=== PATIENT | male | born 1980 | race Two or more races ===

== ENCOUNTER 2023-04-06 18:28 | Inpatient (IN) | payer OTHER ==
[~2023-04-06] VITALS: Ht 177.8 cm; Wt 68.9 kg
[2023-04-06 19:49] LABS: HEMATOCRIT 47.3 % (39.0-48.0); HEMOGLOBIN 15.8 g/dL (13-16.00); MEAN CELL VOLUME 90.9 fL (80.0-100.00); MEAN CORPUSCULAR HEMOGLOBIN 30.3 pg (27.00-32.0); MEAN CORPUSCULAR HGB CONC 33.3 g/dl (32.0-36.0); PLATELET COUNT 202 K/uL (150-450); RED BLOOD COUNT 5.21 M/uL (4.00-6.00); RED CELL DISTRIBUTION WIDTH 13.2 % (11.5-14.5)
[2023-04-06 20:12] LABS: ALBUMIN 3.9 gm/dL (3.4-5.0); BILIRUBIN TOTAL 0.62 mg/dL (0.3-1.2); CALCIUM 9.3 mg/dL (8.5-10.1); CREATININE SERUM 1.25 mg/dL (0.70-1.30); GFR 63.65; GLOBULINA 3.6 G/DL (2.4-3.5); POTASSIUM 4.07 mEq/L (3.5-5.1); TOTAL PROTEIN 7.5 gm/dL (6.4-8.2)
[2023-04-06 20:25] LABS: PARTIAL THROMBOPLASTIN TIME 29.6 SECONDS (22.0-34.0)
[2023-04-07 07:32] LABS: HEMATOCRIT 42.4 % (39.0-48.0); HEMOGLOBIN 14.1 g/dL (13-16.00); MEAN CORPUSCULAR HEMOGLOBIN 30.2 pg (27.00-32.0); MEAN CORPUSCULAR HGB CONC 33.2 g/dl (32.0-36.0); PLATELET COUNT 157 K/uL (150-450); RED BLOOD COUNT 4.66 M/uL (4.00-6.00); RED CELL DISTRIBUTION WIDTH 13.3 % (11.5-14.5)
[2023-04-07 08:09] LABS: ALBUMIN 3.4 gm/dL (3.4-5.0); ALKALINE PHOSPHATASE 64 U/L (50-136); ALT/SGPT 49 U/L (12-78); AST/SGOT 23 U/L (15-37); BILIRUBIN TOTAL 0.86 mg/dL (0.3-1.2); BILIRUBIN,CONJUGATED 0.17 mg/dL (0.0-0.2); BLOOD UREA NITROGEN 16 mg/dL (7-18); BUN CREA RATIO 14 (7.0-25.0); CARBON DIOXIDE 29 mEq/L (21-32); CHLORIDE 108 mmol/L (98-107); CHOLESTEROL 174 mg/dL (0-200); CREATININE SERUM 1.18 mg/dL (0.70-1.30); GFR 68.03; GLOBULINA 2.5 G/DL (2.4-3.5); GLUCOSE FASTING 152 mg/dL (65-100); HDL 57 mg/dl (40-60); LDL 112 mg/dl (0-130); OSMOLALITY SERUM 285 MOSM/KG (275-295); POTASSIUM 4.48 mEq/L (3.5-5.1); SODIUM 141 mmol/L (136-145); TOTAL PROTEIN 5.9 gm/dL (6.4-8.2); TRIGLYCERIDES 27 mg/dL (0-150); VLDL 5 (0-39)
[2023-04-07 09:03] LABS: ERYTHROCYTE SEDIMENTATION RATE 2 mm/hr
[2023-04-07 10:56] LABS: PARTIAL THROMBOPLASTIN TIME 30.6 SECONDS (22.0-34.0)
== END 2023-04-08 11:51 | disposition home or self-care (01) | DRG 343 ==
LOC: ER 18:29 → SEC-K 22:44 → MEDI 22:44
PROVIDERS: General Practice; ADMIT Internal Medicine; ATTEND Internal Medicine
PROC: 0DTJ4ZZ Resection of Appendix, Percutaneous Endoscopic Approach (ICD-10-PCS; principal; 2023-04-06)
DX: K35.80 Unspecified acute appendicitis (principal)

== ENCOUNTER 2023-08-23 20:16 | Emergency (ER) | payer OTHER ==
[~2023-08-23] VITALS: Ht 177.8 cm; Wt 74.8 kg
[2023-08-23 21:56] LABS: HEMATOCRIT 47.4 % (39.0-48.0); HEMOGLOBIN 16.2 g/dL (13-16.00); MEAN CELL VOLUME 91.9 fL (80.0-100.00); MEAN CORPUSCULAR HEMOGLOBIN 31.4 pg (27.00-32.0); MEAN CORPUSCULAR HGB CONC 34.1 g/dl (32.0-36.0); PLATELET COUNT 195 K/uL (150-450); RED BLOOD COUNT 5.16 M/uL (4.00-6.00); RED CELL DISTRIBUTION WIDTH 13.2 % (11.5-14.5)
[2023-08-23 22:19] LABS: ALBUMIN 3.7 gm/dL (3.4-5.0); BILIRUBIN TOTAL 0.23 mg/dL (0.3-1.2); CALCIUM 9.9 mg/dL (8.5-10.1); CREATININE SERUM 1.3 mg/dL (0.70-1.30); GFR 60.83; GLOBULINA 3.4 G/DL (2.4-3.5); POTASSIUM 4.8 mEq/L (3.5-5.1); TOTAL PROTEIN 7.1 gm/dL (6.4-8.2)
== END 2023-08-23 22:35 | disposition home or self-care (01) ==
LOC: ER 20:17
PROVIDERS: General Practice
DX: R00.2 Palpitations (principal); R53.81 Other malaise; Z20.822 Contact with and (suspected) exposure to COVID-19